=== PATIENT | female | born 1995 ===

== ENCOUNTER 2021-01-15 07:15 | Day surgery (SDC) | payer OTHER | END 2021-01-15 20:40 | disposition home or self-care (01) | LOC: CIR.AMB 07:15 | PROVIDERS: ATTEND Orthopaedic Surgery Hand Surgery | DX: S62.320A Displaced fracture of shaft of second metacarpal bone, right hand, initial encounter for closed fracture (principal); S62.322A Displaced fracture of shaft of third metacarpal bone, right hand, initial encounter for closed fracture; Z20.822 Contact with and (suspected) exposure to COVID-19 ==